=== PATIENT | female | born 1965 | race Caucasian/White ===

== ENCOUNTER 2019-09-14 09:05 | Day surgery (SDC) | payer BC ==
[2019-09-10 17:16] VITALS: BMI 24.0
[2019-09-14] MEDS ORDERED: ONDANSETRON 4 MG/2 ML VIAL IVPUSH PRN (09:43)
[2019-09-14] MEDS ORDERED: oxyCODONE HCL 5 MG TABLET PO PRN (09:43)
[2019-09-14] MEDS ORDERED: LACTATED RINGERS SOLUTION 1,000 ML IV SCH (09:45)
--- NOTE | 2019-09-14 10:23 | HP ---
History & Physical Update - History History: No Change - Physical Physical: No Change - Assessment Assessment: No Change - Plan Plan: No Change (Hysteroscopy, D&C)
[2019-09-14] MEDS ORDERED: MIDAZOLAM HCL 2 MG/2 ML SINGLE DOSE VIAL ONE (10:42)
[2019-09-14] MEDS ORDERED: LIDOCAINE HCL/PF 2% SDV 5ML VIAL ONE (10:42)
[2019-09-14] MEDS ORDERED: PROPOFOL 20 ML ONE (10:42)
[2019-09-14] MEDS ORDERED: KETOROLAC TROMETHAMINE 30 MG/1 ML VIAL ONE (11:03)
[2019-09-14] MEDS ORDERED: DEXAMETHASONE SOD PHOSPHATE 4 MG/1 ML VIAL ONE (11:03)
--- NOTE | 2019-09-14 11:20 | OP ---
Operative Note - Note: Operative Date: 09/14/19 Pre-Operative Diagnosis: Postmenopausal bleeding, personal hx breast malignancy. Operation: Hysteroscopy, D&C Findings: EUA showed a small AV uterus w/o pelvic/adnexal masses. Hysteroscopy showed a small uterine cavity with atrophic endometrium and no lesions. Post-Operative Diagnosis: Same as Pre-op Surgeon: Riley Milton Anesthesiologist/MOTHER TESTER: Dayanna Hawk Anesthesia: Spinal Specimens Removed: Endometrial curettings Estimated Blood Loss (mls): 3 Drains, Volume Out (mls): 0 Blood Volume Replaced (mls): 0 Fluid Volume Replaced (mls): 400 Operative Report Dictated: Yes
[2019-09-14 13:10] VITALS: BP 99/61; PULSE 74; TEMP 98
--- NOTE | 2019-09-15 16:03 | PATH ---
Surgical Pathology Report Patient Name: FELIX SANCHEZ [facility]. Rec. #: [id number] /Age/Gender: 1965 (Age: 53) / F Account: [id number] Location: [facility] SUR[facility]ICAL Taken: 09/14/2019 Received: 09/14/2019 Reported: 09/15/2019 Physicians: Riley Milton M.D. Specimen(s) Received ENDOMETRIAL CURETTINGS Clinical History Postmenopausal bleeding, history of breast cancer Final Diagnosis ENDOMETRIAL CURETTINGS, DILATION AND CURETTAGE: FRAGMENTS OF ATROPHIC ENDOMETRIUM AND SCANT BENIGN CERVICAL TISSUE ADMIXED WITH MUCUS AND BLOOD. Electronically Signed Latesha Trimble M.D. Gross Description Received in formalin labeled "endometrial curettings," is a 0.4 x 0.3 x 0.1 cm aggregate of moya-red soft tissue fragments admixed with mucus. The formalin is filtered and the specimen is entirely submitted in one cassette. DL/09/14/2019 saudi/09/14/2019
--- NOTE | 2019-09-15 19:15 | OP ---
DATE OF OPERATION: 09/14/2019 PREOPERATIVE DIAGNOSIS: Postmenopausal bleeding, personal history of breast malignancy. POSTOPERATIVE DIAGNOSIS: Postmenopausal bleeding, personal history of breast malignancy. Endometrial atrophy. PROCEDURE: Hysteroscopy dilation and curettage. SURGEON: Riley Milton MD. ANESTHESIOLOGIST: Dayanna Hawk MD. ANESTHESIA: General. COMPLICATIONS: None. ESTIMATED BLOOD LOSS: 3 mL. INTRAVENOUS FLUIDS: 400 mL. ESTIMATED BLOOD LOSS: 30 mL. PATHOLOGY: Endometrial curettings. COMPLICATIONS: None. FINDINGS: Examination under anesthesia showed a small anteverted uterus with no pelvic or adnexal masses. Hysteroscopy showed a small uterine cavity with no lesions. The endometrium was noted to be atrophic. No pathologies were visualized. PROCEDURE: The patient was met preoperatively. Risks, benefits, and alternatives of surgery were discussed in detail. All questions were answered. The consent form was reviewed and discussed. The patient verbalized understanding and requested to proceed with the surgery. The patient was brought to the OR with the IV running. She was placed on a surgical table in the supine position. The general anesthesia was achieved without difficulty. The patient was then placed in a dorsal lithotomy position using adjustable Aj stirrups. She was examined under anesthesia with the findings as described above. The patient was then prepped and draped in the usual sterile fashion. A timeout procedure was conducted as per standard protocol. A weighted speculum was then introduced inside the vagina with good visualization of the cervix. The cervix was grasped with a single-toothed tenaculum. The cervical os was noted to be stenotic. The cervical os was dilated using serial graduated dilators to accommodate a size 15 Lui dilator. A diagnostic hysteroscope was then introduced inside the uterus. The uterine cavity appeared to be small and the endometrial lining was atrophic. There were no lesions or masses noted. The hysteroscope was then removed. A sharp curettage was performed, and the tissue was submitted to pathology. Once this was completed, all of the instruments were removed from the patient. Sponge, lap, and instrument counts were correct. Good hemostasis was confirmed. The patient was then returned to supine position. She was transferred to recovery room, awake and in stable condition. [place] [id number]
== END 2019-09-14 13:10 | disposition home or self-care (01) ==
LOC: JASU-SURG 09:05
PROVIDERS: ATTEND Obstetrics & Gynecology
PROC: 0UDB7ZX Extraction of Endometrium, Via Natural or Artificial Opening, Diagnostic (ICD-10-PCS; principal; 2019-09-14 10:30)
PROC: 0UJD8ZZ Inspection of Uterus and Cervix, Via Natural or Artificial Opening Endoscopic (ICD-10-PCS; 2019-09-14 10:30)
DX: N95.0 Postmenopausal bleeding (principal); N85.8 Other specified noninflammatory disorders of uterus; Z85.3 Personal history of malignant neoplasm of breast
CPT/HCPCS: 86850; 86900; 86901; 88305-TC; 94760